=== PATIENT | female | born 1955 | race Caucasian/White ===

== ENCOUNTER 2018-03-30 19:07 | Inpatient (IN) | payer MEDICAID ==
--- NOTE | 2018-03-30 19:57 | ED Physician Chart ---
ED Chief Complaint/HPI - Patient Information Date Seen:: 03/30/18 Time Seen:: 19:57 Chief Complaint:: elevated bp History of Present Illness:: 62 yr old [place] from [place] with headache elevated bp up to 180 she states they ran out of meds and has not been getting it some headache and dizziness no numbness or tingling Allergies:: Allergies Allergy/AdvReac Type Severity Reaction Status Date / Time No Known Allergies Allergy Verified 03/30/18 19:14 Vitals:: Vital Signs - 8 hr 03/30/18 19:07 Temp 98.1 F HR 78 RR 20 BP 180/85 O2 Sat % 95 ED Review of Systems - Review of Systems General/Constitutional: No fever, No chills, No weight loss, No weakness, No diaphoresis, No edema, No loss of appetite Skin: No skin lesions, No rash, No bruising Head: Headache Eyes: No loss of vision, No pain, No diplopia ENT: No earache, No nasal drainage, No sore throat, No tinnitus Neck: No neck pain, No swelling, No thyromegaly, No stiffness, No mass noted Cardio Vascular: No chest pain, No palpitations, No PND, No orthopnea, No edema Pulmonary: No SOB, No cough, No sputum, No wheezing GI: No nausea, No vomiting, No diarrhea, No pain, No melena, No hematochezia, No constipation, No hematemesis G/U: No dysuria, No frequency, No hematuria Musculoskeletal: No bone or joint pain, No back pain, No muscle pain Endocrine: No polyuria, No polydipsia Psychiatric: No prior psych history, No depression, No anxiety, No suicidal ideation Hematopoietic: No bruising, No lymphadenopathy Allergic/Immuno: No urticaria, No angioedema Neurological: No syncope, No focal symptoms, No weakness, No paresthesia, No headache, No seizure, No dizziness, No confusion, No vertigo ED Past Medical History - Past Medical History Past Medical History: HTN, DM, CAD, Dyslipidemia Family Medical History - Family Member Mother History Unknown: Yes Ethnicity: Non- ED Physical Exam - Physical Examination General/Constitutional: Awake, Well-developed, well-nourished, Alert, No distress, GCS 15, Non-toxic appearing, Ambulatory Head: Atraumatic Eyes: Lids, conjuctiva normal, PERRL, EOMI Skin: Nl inspection, No rash, No skin lesions, No ecchymosis, Well hydrated, No lymphadenopathy Other Skin comments:: toe amputaion lt and skin ulcer on iv abs via pick line on rt at the senior care ENMT: External ears, nose nl, Nasal exam nl, Lips, teeth, gums nl Neck: Nontender, Full ROM w/o pain, No JVD, No nuchal rigidity, No bruit, No mass, No stridor Respiratory: Nl effort/Exclusion, Clear to Auscultation, No Wheeze/Rhonchi/Rales Cardio Vascular: RRR, No murmur, gallop, rubs, NL S1 S2 GI: No tenderness/rebounding/guarding, No organomegaly, No hernia, Normal BS's, Nondistended, No mass/bruits, No McBurney tenderness : No CVA tenderness Extremities: No tenderness or effusion, Full ROM, normal strength in all extremities, No edema, Normal digits & nails Neuro/Psych: Alert/oriented, DTR's symmetric, Normal sensory exam, Normal motor strength, Judgement/insight normal, Mood normal, Normal gait, No focal deficits Misc: Normal back, No paraspinal tenderness ED Assessment - Assessment General Assessment: hypertension out of control ED Septic Shock - . Is Septic Shock (SBP<90, OR Lactate>4 mmol\L) present?: No - <6hrs of presentation: Vital Signs: Vital Signs - 8 hr 03/30/18 19:07 Temp 98.1 F HR 78 RR 20 BP 180/85 O2 Sat % 95 ED Reassessment (Disposition) - Reassessment Reassessment:: hypertension out of control - Diagnosis Diagnosis:: hypertension improved s/p lisinopril 5.0 mg - Patient Disposition Discharge/Transfer:: [facility] Condition at Disposition:: Stable
[2018-03-30 20:39] LABS: URINE SOURCE CLEAN C
[2018-03-30 20:42] LABS: URINE BILIRUBIN NEGATIVE (NEGATIVE); URINE BLOOD TRACE (NEGATIVE); URINE GLUCOSE (UA) NEGATIVE (NEGATIVE); URINE KETONE NEGATIVE (NEGATIVE); URINE LEUKOCYTE ESTERASE NEGATIVE (NEGATIVE); URINE MICROSCOPIC INDICATED? YES; URINE NITRATE NEGATIVE (NEGATIVE); URINE PH 6.5 (4.6 - 8.0); URINE PROTEIN >=300 mg/dL (NEGATIVE); URINE UROBILINOGEN 0.2 E.U./dL (0.2 - 1.0)
[2018-03-30 20:59] LABS: URINE CLARITY CLEAR (CLEAR); URINE COLOR YELLOW
[2018-03-30 21:01] LABS: URINE BACTERIA OCCASIONAL /hpf (NONE SEEN); URINE EPITHELIAL CELLS FEW /lpf (FEW); URINE WBC 0-2 /hpf (0-5)
[2018-03-30 21:02] LABS: URINE YEAST FEW /hpf (NONE SEEN)
[2018-03-30 21:52] LABS: % BASOPHILS 0.7 % (0.0-2.0); % EOSINOPHILS 3.6 % (0.0-5.0); % LYMPHOCYTES 27.1 % (20.0-50.0); % MONOCYTES 6.4 % (2.0-10.0); % NEUTROPHILS 62.2 % (40.0-80.0); BASOPHILE ABSOLUTE 0.1 Th/cumm (0-0.2); EOSINOPHILE ABSOLUTE 0.3 Th/cmm (0.1-0.4); HEMOGLOBIN 13.5 gm/dL (12-16); LYMPHOCYTE ABSOLUTE 2.4 Th/cmm (1.5-3.0); MEAN CELL VOLUME 92.9 fl (81-100); MEAN CORPUSCULAR HEMOGLOBIN 30.7 pg (27.0-31.0); MEAN PLATELET VOLUME 8.9 fl; MONOCYTE ABSOLUTE 0.6 Th/cmm (0.3-1.0); NEUTROPHILE ABSOLUTE 5.3 Th/cmm (1.8-8.0); PLATELET COUNT 307 Th/cmm (150-400); RED BLOOD COUNT 4.41 Mil/cmm (3.80-5.10); RED CELL DISTRIBUTION WIDTH 14.6 % (11.5-20.0); WHITE BLOOD COUNT 8.7 Th/cmm (4.8-10.8)
[2018-03-30 22:35] LABS: ALB/GLOB RATIO 1.1 (1.0-1.8); ALBUMIN 3.2 gm/dL (3.7-5.3); ALKALINE PHOSPHATASE 81 U/L (34-104); ANION GAP 9.3 (7.0-16.0); BILIRUBIN,TOTAL 0.3 mg/dL (0.3-1.0); BUN - UREA NITROGEN 31 mg/dL (7-25); CALCIUM SERUM 9.5 mg/dL (8.6-10.3); CHLORIDE 101 mEq/L (98-107); GFR AFRICAN-AMERICAN > 60.0 ml/min (>90); GFR NON AFRICAN-AMERICAN 59.7 ml/min; GLUCOSE 142 mg/dL (70-105); POTASSIUM SERUM 4.3 mEq/L (3.5-5.1); SGOT 8 U/L (13-39); SGPT/ALT 6 U/L (7-52); SODIUM SERUM 139 mEq/L (136-145); TOTAL PROTEIN,SERUM 6.1 gm/dL (6.0-8.3)
[2018-03-30] MEDS ORDERED: Labetalol 5 mg/mL 20 mL Vial IVP PRN (23:04)
[2018-03-31] MEDS ORDERED: Hydrocodone/APAP 5mg/325mg Tab PO PRN (03:49)
[2018-03-31] MEDS ORDERED: Magnesium Hydroxide (MOM) 30 mL UDC PO PRN (03:49)
[2018-03-31] MEDS ORDERED: ERTAPENEM 1 GM IV SCH (04:00)
--- NOTE | 2018-03-31 04:22 | History & Physical ---
ADMIT DATE: 03/31/2018 CHIEF COMPLAINT: Uncontrolled hypertension. HISTORY OF PRESENT ILLNESS: The patient is 62-year-old female with a past medical history of hypertension, diabetes mellitus type 2, coronary artery disease, dyslipidemia, had developed uncontrolled hypertension. The systolic blood pressure was 180s. The patient also has SSA headache. So, she was sent to [facility] ER for further evaluation and management. On initial evaluation, her vital signs shows blood pressure 180/85, some oral antihypertensive apply given; however, her blood pressure went back again to 178. So she required admission to control her blood pressure. I did start the patient on labetalol. Besides this, patient also receiving antibiotics for her right foot ulcer, possibly deep infection. PAST MEDICAL HISTORY: Includes hypertension, diabetes mellitus type 2, coronary artery disease and dyslipidemia. ALLERGIES: NKDA. MEDICATIONS: As per medication reconciliation sheet. The patient is receiving Tylenol 325 mg p.o. q. 6 hourly p.r.n., Alginate Powder daily, glucose gel 50 mg p.o. daily, Colace 100 mg p.o. twice a day, Lovenox 40 mg subcutaneous daily, Invanz 1 gram IV q. 24 hours, gabapentin 1200 mg p.o. twice a day, glipizide 10 mg p.o. twice a day, Exmore 1 tab p.o. q.6. hourly p.r.n., insulin coverage with sliding scale, lisinopril 10 mg p.o. daily, lorazepam 0.5 mg q.8. hourly p.r.n. for anxiety, milk of magnesia, metformin 500 mg twice a day, multivitamin 1 tab p.o. daily, Zofran 4 mg p.o. q.6. hourly p.r.n. for nausea and vomiting, Klor-Con 10 mEq 1 tab p.o. daily and Restoril 50 mg p.o. at bedtime. REVIEW OF SYSTEMS: The patient is a poor historian. PHYSICAL EXAMINATION: GENERAL/CONSTITUTIONAL: No fever, no chills, no weight loss, no diaphoresis, no generalized weakness. HEENT: No diplopia, no photophobia, no sore throat, no ear discharge, no eye discharge. RESPIRATORY: The patient has no cough, no shortness of breath. CARDIOVASCULAR: No chest pain or palpitation. GASTROINTESTINAL: No nausea, no vomiting, no diarrhea, no constipation. GENITOURINARY: No dysuria. NEUROLOGIC: No headache, no dizziness, no focal weakness at this time. SKIN: The patient has a right foot ulcer. PHYSICAL EXAMINATION: VITAL SIGNS: Current vital signs shows temperature is 97.8, pulse 70, respiration 19 and blood pressure 178/83. GENERAL: The patient is comfortable lying in the bed, not in acute distress. HEENT: Head is normocephalic, atraumatic. Oral cavity moist, pink tongue. Eyes: No pallor, no icterus. PERRLA, EOMI. NECK: Supple, no JVD, no carotid bruit. Trachea midline. CHEST: Bilateral breath sounds. No crackles or wheezing. HEART: S1, S2 within normal limits. Regular rhythm. No murmur, no gallop. ABDOMEN: Soft, nontender, nondistended. Bowel sounds present. EXTREMITIES: No cyanosis, no clubbing, no edema. Right foot, the patient has fifth toe amputated. Surgical scar is healthy, but at the bottom of the right forefoot anterolaterally. There is a P size open wound with a deepest structure expose likely tendon versus wound well defined border. Serous discharge present. NEUROLOGIC: Alert, awake, communicates well. LABORATORY DATA: Current lab shows WBC count is 8700, hemoglobin 13.5, hematocrit 41, platelets are 307,000 and neutrophil is 62%. Sodium is 139, potassium 4.3, chloride 101, bicarb is 33, BUN is 21, creatinine 1 and glucose is 142. IMPRESSION: 1. Urgent hypertension, not controlled with an oral antihypertensive in the ER, even after giving labetalol 10 mg it is barely controlled. 2. Right foot wound, rule out osteomyelitis. 3. History of hypertension. 4. Diabetes mellitus type 2 5. Coronary artery disease. 6. Dyslipidemia. RECOMMENDATIONS: Wound care check a 3-phase bone scan. Antibiotic chowdhury, continue Invanz or meropenem at this time. Meanwhile, we will get further information from the previous facilities. Continue home medications for urgent hypertension, labetalol was started 10 mg p.o. q.6. hourly p.r.n. Cardiology consult with Dr. Underwood was called and he started the patient on Coreg and Cozaar. Continue on Vasotec. Once the patient's blood pressure controlled, start discharge plan. Consult General Surgery, Vascular Surgery Dr. Elias. JOB# [id number]
[2018-03-31] MEDS: Meropenem 1 GM in Sodium Chloride 0.9% 100 ML IV SCH ×3 (04:24→20:18)
[2018-03-31 04:38] LABS: % EOSINOPHILS 2.7 % (0.0-5.0); % MONOCYTES 5.7 % (2.0-10.0); % NEUTROPHILS 68.6 % (40.0-80.0); EOSINOPHILE ABSOLUTE 0.2 Th/cmm (0.1-0.4); HEMATOCRIT 40.5 % (41.0-60); HEMOGLOBIN 13.1 gm/dL (12-16); MEAN CELL VOLUME 92.8 fl (81-100); MEAN CORPUSCULAR HEMOGLOBIN 30.1 pg (27.0-31.0); MEAN CORPUSCULAR HGB CONC 32.4 pg (28.0-36.0); MEAN PLATELET VOLUME 9.3 fl; MONOCYTE ABSOLUTE 0.5 Th/cmm (0.3-1.0); PLATELET COUNT 290 Th/cmm (150-400); RED BLOOD COUNT 4.36 Mil/cmm (3.80-5.10); RED CELL DISTRIBUTION WIDTH 14.3 % (11.5-20.0); WHITE BLOOD COUNT 8.7 Th/cmm (4.8-10.8)
--- NOTE | 2018-03-31 05:55 | Consultation ---
DATE OF CONSULTATION: 03/31/2018 TIME OF CONSULTATION: 3:00 a.m. Emergency consult. HISTORY OF PRESENT ILLNESS: This 62-year-old female was seen and examined at the courtesy of Dr. Nathen Cain. The patient was admitted here to the Emergency Room. She was transferred here from a custodial [facility] with hypertensive emergency and uncontrolled hypertension. She does have a history of hypertension, history of diabetes, on insulin. She has history of amputation of the right fifth toe for osteomyelitis. She has history of skin cancer, status post gallbladder surgery. Her EKG showed sinus rhythm, possible anteroseptal HI, the possibility of old HI by EKG, question for history of coronary artery disease. LABORATORY AND DIAGNOSTIC DATA: On reviewing the lab: WBC count was 8.7, hemoglobin 13.5, hematocrit 41, platelet count was 307. Sodium was 139, potassium 4.3, chloride 101, carbon dioxide 33, BUN 31, creatinine 1.0, GFR was 59.7, glucose was 142, lactic acid was 1.02, calcium was 9.5, total bilirubin 0.3, AST 8, ALT 6, alkaline phosphatase 81. Troponin was 0.04. Total protein 6.1, albumin 3.2, bilirubin 2.9. PAST MEDICAL HISTORY: As mentioned above. FAMILY HISTORY: The patient does not give any significant family history but the patient is not a very good historian. SOCIAL HISTORY: Denies smoking or drinking. PHYSICAL EXAMINATION: VITAL SIGNS: Heart rate was 70, blood pressure was 173/94, in the ER it was about 200/96. SKIN: Normal. HEENT: Head: Normocephalic. Eyes: Conjunctivae were pink. There is no icterus in the eyes. Pupils reactive to light. NECK: There was no increased jugular venous distention, no thyromegaly, no lymphadenopathy. Carotids equal both sides. CHEST: Bilaterally symmetrical, moved well with respiration. Respiratory movements equal both sides. Trachea is central. There is note to percussion. Breath sound: Diminished breath sounds, air entry. Could not appreciate any rales or rhonchi. CARDIOVASCULAR SYSTEM: PMI not well localized. There is no pulsation or thrill. No parasternal heave. S1 normal, S2 physiologic. There was no S3, no rub. ABDOMEN: Soft, no tenderness, no rigidity, no guarding and no organomegaly. Bowel sounds normal. CENTRAL NERVOUS SYSTEM: Grossly unremarkable. Hyporeflexia. Plantars are flexors. IMPRESSION: Uncontrolled hypertension with hypertensive emergency, diabetes type 2 on insulin, status post amputation of the right fifth toe for osteomyelitis, history of skin cancer, status post gallbladder surgery, old myocardial infarction by EKG, possible coronary artery disease. PLAN: To get a repeat EKG in a.m., repeat troponin, echocardiogram to evaluate left ventricular function and valvular structure, lipid profile in a.m., TSH in a.m., hemoglobin A1c, a chest x-ray. In the meantime, we will add Coreg 6.25 b.i.d., Cozaar 50 mg b.i.d., Vasotec 1.25 mg IV q.6 p.r.n. for blood pressure more than 160 systolic. Discussed with RN and Dr. Nathen Cain. JOB# [id number]
[2018-03-31] MEDS ORDERED: INSULIN HUMAN REGULAR 100 UNITS/ML UNIT SUBQ SCH (06:00)
[2018-03-31 06:49] LABS: ANION GAP 12.6 (7.0-16.0); BUN - UREA NITROGEN 29 mg/dL (7-25); CALCIUM SERUM 9.5 mg/dL (8.6-10.3); CARBON DIOXIDE 28.8 mEq/L (21.0-31.0); CHLORIDE 103 mEq/L (98-107); CHOLESTEROL 162 mg/dL (<200); CREATININE - SERUM 0.9 mg/dL (0.6-1.2); GFR AFRICAN-AMERICAN > 60.0 ml/min (>90); GFR NON AFRICAN-AMERICAN > 60.0 ml/min; GLUCOSE 158 mg/dL (70-105); HDL -HIGH DENSITY LIPOPROTEIN 40 mg/dL (23-92); POTASSIUM SERUM 4.4 mEq/L (3.5-5.1); SODIUM SERUM 140 mEq/L (136-145); TRIGLYCERIDES 198 mg/dL (<150)
--- NOTE | 2018-03-31 08:34 | Diagnostic Imaging Report ---
Portable chest x-ray HISTORY: Pain The heart is enlarged. There is accentuation of interstitial lung markings. Suggestion of a degree of pulmonary vascular redistribution. A marginal congestive heart failure cannot be excluded. A right-sided vascular catheter tip is in the region of the superior vena cava. IMPRESSION: 1. Cardiomegaly along with changes that may reflect early/marginal congestive heart failure without jayden pulmonary edema. Clinical correlation is needed.
[2018-03-31] MEDS: Multivitamin w/ Minerals Tab PO SCH (08:55)
[2018-03-31] MEDS: Enoxaparin 40 mg/0.4 mL 0.4mL Syr SUBQ SCH (08:55)
[2018-03-31] MEDS ORDERED: Non-Formulary Item 1 EA (Potassium Chloride [Klor-Con 10] 1 TAB) PO SCH (09:00)
[2018-03-31] MEDS ORDERED: Non-Formulary Item 1 EA (Arginine/Ascorbate Sod/Vite Ac [Arginaid Powder] 1 EACH) PO SCH (09:00)
--- NOTE | 2018-03-31 11:33 | Consultation ---
DATE OF CONSULTATION: 03/31/2018 SURGICAL CONSULTATION REFERRING PHYSICIAN: Nathen Cain MD. REASON FOR CONSULTATION: Infection, right foot. Thank you for referring this patient to me. HISTORY OF PRESENT ILLNESS: A 62-year-old obese diabetic female who claims that she had infection of the right foot at the base of the amputated fifth toe. The toe was amputated a year ago and about a month ago, there developed an ulcer, plantar aspect just below the stump. A bone scan was done at [facility] 3 weeks ago and this showed osteomyelitis. She is diabetic, hypertensive with coronary artery disease, dyslipidemia and smokes at least 1/2 a pack of cigarettes a day. She claims that when she ambulates with a walker, she develops claudication in both legs after just several steps. LABORATORY STUDIES: On this admission showed the WBC to be normal. Chemistry: Blood sugar was 142 on admission and 158 today. Triglyceride is elevated to 198, rest of the lipid panel is normal. Chest x-ray showed cardiomegaly with marginal CHF. PHYSICAL EXAMINATION: Now the patient is alert and oriented. She is obese. Significant finding stump of the right fifth toe amputation with an ulcer at the base with minimal cellulitis and no drainage. It is not tender on pressure. RECOMMENDATION: We will order vascular study to determine peripheral vascular disease and will obtain the report of the MRI or bone scan at [facility] performed 3 weeks ago. The patient is on antibiotics now. Thank you Dr. Elias. JOB# [id number]
[2018-03-31] MEDS: INSULIN ASPART SLIDING SCALE 100 UNITS/ML UNIT SUBQ SCH ×2 (12:06→17:26)
--- NOTE | 2018-03-31 12:52 | Diagnostic Imaging Report ---
Bilateral lower extremity Doppler venous ultrasound exam HISTORY: Pain/swelling Sonographic sector images were obtained through the deep venous systems of both legs. Associated Doppler data was obtained. The exam demonstrates patency of the common femoral, superficial femoral, popliteal, and posterior tibial veins bilaterally. Specifically, no thrombus is seen. There are normal compressibility and augmentation responses. IMPRESSION: Negative exam for deep vein thrombophlebitis.
--- NOTE | 2018-03-31 12:55 | Diagnostic Imaging Report ---
Bilateral lower extremity Doppler arterial ultrasound exam HISTORY: Peripheral vascular disease, pain Sonographic sector images were obtained through the arterial systems of both legs. Associated Doppler data was obtained. The exam of the right leg demonstrates triphasic waveforms within the common femoral artery. Biphasic waveforms are noted within the superficial femoral, popliteal, anterior tibial, and dorsalis pedis arteries. Triphasic waveforms seen within the right posterior tibial artery. Slight decrease in velocities below the knee. The ankle-brachial index is normal (1.1). No significant focal narrowing/stenosis sonographically seen. The left leg demonstrates triphasic waveforms within the common femoral artery and midportion of the left superficial femoral artery. The remainder of the arterial system exhibits biphasic waveforms. Slight decrease in velocity noted within the left dorsalis pedis artery region. However, the ankle-brachial index is normal (1.1). No significant focal narrowing/stenosis is seen. IMPRESSION: 1. Evidence of mild bilateral atherosclerotic changes. No significant narrowing or stenosis.
[2018-04-01] MEDS: INSULIN ASPART SLIDING SCALE 100 UNITS/ML UNIT SUBQ SCH ×4 (00:16→17:38)
--- NOTE | 2018-04-01 01:03 | Infectious Disease Prog Note ---
Infectious Disease Subjective - Review of Systems Service Date: 04/01/18 Subjective: There is no new change,blood pressure is better controlled. Infectious Disease Objective - Results Result Diagrams: 03/31/18 04:15 03/31/18 04:15 Recent Labs: Laboratory Last Values WBC 8.7 Th/cmm (4.8-10.8) 03/31/18 04:15 RBC 4.36 Mil/cmm (3.80-5.10) 03/31/18 04:15 Hgb 13.1 gm/dL (12-16) 03/31/18 04:15 Hct 40.5 % (41.0-60) L 03/31/18 04:15 MCV 92.8 fl (81-100) 03/31/18 04:15 MCH 30.1 pg (27.0-31.0) 03/31/18 04:15 MCHC Differential 32.4 pg (28.0-36.0) 03/31/18 04:15 RDW 14.3 % (11.5-20.0) 03/31/18 04:15 Plt Count 290 Th/cmm (150-400) 03/31/18 04:15 MPV 9.3 fl 03/31/18 04:15 Neutrophils % 68.6 % (40.0-80.0) 03/31/18 04:15 Lymphocytes % 23.0 % (20.0-50.0) 03/31/18 04:15 Monocytes % 5.7 % (2.0-10.0) 03/31/18 04:15 Eosinophils % 2.7 % (0.0-5.0) 03/31/18 04:15 Basophils % 0.0 % (0.0-2.0) 03/31/18 04:15 Sodium 140 mEq/L (136-145) 03/31/18 04:15 Potassium 4.4 mEq/L (3.5-5.1) 03/31/18 04:15 Chloride 103 mEq/L (98-107) 03/31/18 04:15 Carbon Dioxide 28.8 mEq/L (21.0-31.0) 03/31/18 04:15 Anion Gap 12.6 (7.0-16.0) 03/31/18 04:15 BUN 29 mg/dL (7-25) H 03/31/18 04:15 Creatinine 0.9 mg/dL (0.6-1.2) 03/31/18 04:15 Est GFR ( Amer) > 60.0 ml/min (>90) 03/31/18 04:15 Est GFR (Non-Af Amer) > 60.0 ml/min 03/31/18 04:15 BUN/Creatinine Ratio 32.2 03/31/18 04:15 Glucose 158 mg/dL (70-105) H 03/31/18 04:15 POC Glucose 117 MG/DL (70 - 105) H 03/31/18 23:47 Whole Bld Lactic Acid 1.02 mmol/L (0.60-1.99) 03/30/18 21:40 Calcium 9.5 mg/dL (8.6-10.3) 03/31/18 04:15 Total Bilirubin 0.3 mg/dL (0.3-1.0) 03/30/18 21:40 AST 8 U/L (13-39) L 03/30/18 21:40 ALT 6 U/L (7-52) L 03/30/18 21:40 Alkaline Phosphatase 81 U/L (34-104) 03/30/18 21:40 Troponin I 0.03 ng/mL (0.01-0.05) 03/31/18 04:15 Total Protein 6.1 gm/dL (6.0-8.3) 03/30/18 21:40 Albumin 3.2 gm/dL (3.7-5.3) L 03/30/18 21:40 Globulin 2.9 gm/dL 03/30/18 21:40 Albumin/Globulin Ratio 1.1 (1.0-1.8) 03/30/18 21:40 Triglycerides 198 mg/dL (<150) H 03/31/18 04:15 Cholesterol 162 mg/dL (<200) 03/31/18 04:15 LDL Cholesterol Direct 85 mg/dL (75-193) 03/31/18 04:15 HDL Cholesterol 40 mg/dL (23-92) 03/31/18 04:15 TSH 1.10 uIU/ml (0.34-5.60) 03/31/18 04:15 Urine Source CLEAN C 03/30/18 20:24 Urine Color YELLOW 03/30/18 20:24 Urine Clarity CLEAR (CLEAR) 03/30/18 20:24 Urine pH 6.5 (4.6 - 8.0) 03/30/18 20:24 Ur Specific [place] 1.020 (1.005-1.030) 03/30/18 20:24 Urine Protein >=300 mg/dL (NEGATIVE) 03/30/18 20:24 Urine Glucose (UA) NEGATIVE mg/dL (NEGATIVE) 03/30/18 20:24 Urine Ketones NEGATIVE mg/dL (NEGATIVE) 03/30/18 20:24 Urine Blood TRACE (NEGATIVE) 03/30/18 20:24 Urine Nitrate NEGATIVE (NEGATIVE) 03/30/18 20:24 Urine Bilirubin NEGATIVE (NEGATIVE) 03/30/18 20:24 Urine Urobilinogen 0.2 E.U./dL (0.2 - 1.0) 03/30/18 20:24 Ur Leukocyte Esterase NEGATIVE (NEGATIVE) 03/30/18 20:24 Urine RBC 2-5 /hpf (0-5) 03/30/18 20:24 Urine WBC 0-2 /hpf (0-5) 03/30/18 20:24 Ur Epithelial Cells FEW /lpf (FEW) 03/30/18 20:24 Urine Bacteria OCCASIONAL /hpf (NONE SEEN) 03/30/18 20:24 Urine Yeast FEW /hpf (NONE SEEN) H 03/30/18 20:24 - Physical Exam Vitals and I&O: Vital Signs Temp 97 F 04/01/18 00:00 Pulse 66 04/01/18 00:00 Resp 18 04/01/18 00:00 BP 155/85 04/01/18 00:00 Pulse Ox 97 04/01/18 00:00 Intake & Output 03/31/18 03/31/18 04/01/18 06:59 18:59 06:59 Intake Total 150 100 100 Output Total 550 Balance -400 100 100 Weight (lbs) 94.347 kg 94.517 kg Intake: Intake, IV Amount 100 100 100 Meropenem 1 gm In Sodium 100 100 100 Chloride 0.9% 100 ml @ 100 mls/hr IV Q8H [facility] Rx# :[id number] Oral 50 Output: Urine 550 Other: # Voids 3 4 # Bowel Movements 0 Stool Characteristics Formed Brown Weight Source Bedscale Bedscale Active Medications: Current Medications Acetaminophen (Tylenol) 325 mg PO Q6HR PRN PRN Reason: Pain or Fever >101 Stop: 05/30/18 03:48 Acetaminophen/Hydrocodone Bitart ([place] 5mg/325mg) 1 tab PO Q6H PRN PRN Reason: Pain (Severe) Stop: 05/30/18 03:48 Carvedilol (Coreg) 6.25 mg PO BID [facility] Stop: 05/30/18 08:59 Last Admin: 03/31/18 16:36 Dose: 6.25 mg Dextrose (Glutose 40%) 15 gm PO DAILY PRN PRN Reason: LOW BLOOD SUGAR Stop: 05/30/18 03:48 Docusate Sodium (Colace) 100 mg PO BID [facility] Stop: 05/30/18 08:59 Last Admin: 03/31/18 16:36 Dose: 100 mg Enalaprilat (Vasotec) 1.25 mg IVP Q6HR PRN PRN Reason: SBP ABOVE 160 Stop: 05/30/18 05:59 Last Admin: 03/31/18 04:24 Dose: 1.25 mg Enoxaparin Sodium (Lovenox) 40 mg SUBQ DAILY [facility] Stop: 05/30/18 08:59 Last Admin: 03/31/18 08:55 Dose: 40 mg Gabapentin (Neurontin) 1,200 mg PO BID [facility] Stop: 05/30/18 08:59 Last Admin: 03/31/18 16:37 Dose: 1,200 mg Glipizide (Glucotrol) 10 mg PO BID [facility] Stop: 05/30/18 08:59 Last Admin: 03/31/18 16:37 Dose: 10 mg Meropenem 1 gm/ Sodium (Chloride) 100 mls @ 100 mls/hr IV Q8H [facility] Stop: 05/30/18 03:59 Last Infusion: 03/31/18 21:20 Dose: Infused Insulin Aspart (Novolog Insulin Sliding Scale) 0 units SUBQ Q6HR [facility]; Protocol Stop: 05/30/18 05:59 Last Admin: 04/01/18 00:16 Dose: Not Given Lorazepam (Ativan) 0.5 mg PO Q8HR PRN; Protocol PRN Reason: Anxiety Stop: 05/30/18 03:48 Losartan Potassium (Cozaar) 50 mg PO BID [facility] Stop: 05/30/18 16:59 Last Admin: 03/31/18 16:36 Dose: 50 mg Magnesium Hydroxide (Milk Of Magnesia) 30 ml PO HS PRN PRN Reason: Constipation Stop: 05/30/18 03:48 Metformin HCl (Glucophage) 500 mg PO BIDWM WILL Stop: 05/30/18 08:59 Last Admin: 03/31/18 17:31 Dose: Not Given Miscellaneous (Pharmacy To Dose) 1 ea MC PRN WILL Stop: 05/29/18 22:24 Miscellaneous (Arginine/Ascorbate Sod/Ruby Ac [Arginaid Powder]) 1 each PO DAILY WILL Stop: 05/30/18 08:59 Miscellaneous (Potassium Chloride [Klor-Con 10]) 1 tab PO DAILY WILL Stop: 05/30/18 08:59 Ondansetron HCl (Zofran Odt) 4 mg PO Q6HR PRN PRN Reason: Nausea / Vomiting Stop: 05/30/18 03:51 Temazepam (Restoril) 15 mg PO HS PRN; Protocol PRN Reason: Insomnia Stop: 05/30/18 03:51 Last Admin: 03/31/18 23:57 Dose: 15 mg General: no acute distress, well developed, well nourished HEENT: atraumatic, normocephalic, PERRLA, EOMI Neck: supple, no thyromegaly Cardiovascular: S1S2, regular Lungs: clear to auscultation bilaterally, clear to percussion Abdomen: soft, no tender, no distended, no mass, no rebound Extremities: no cyanosis, no clubbing, no edema Neurological: awake, alert, oriented Skin: other (Right foot wound.) Infectious Disease Assmt/Plan - Assessment Assessment: 1. Urgent hypertension, not controlled with an oral antihypertensive in the ER, even after giving labetalol 10 mg it is barely controlled. 2. Right foot wound, rule out osteomyelitis. 3. History of hypertension. 4. Diabetes mellitus type 2 5. Coronary artery disease. 6. Dyslipidemia. - Plan Plan: Continue meropenem, follow wound cultures. 3P bone scan.
[2018-04-01] MEDS: Meropenem 1 GM in Sodium Chloride 0.9% 100 ML IV SCH ×3 (03:39→20:24)
[2018-04-01] MEDS: Nicotine 14 mg/24 hr Tdm TD SCH (08:17)
[2018-04-01] MEDS: Multivitamin w/ Minerals Tab PO SCH (08:19)
[2018-04-01] MEDS: Enoxaparin 40 mg/0.4 mL 0.4mL Syr SUBQ SCH (08:20)
--- NOTE | 2018-04-01 12:21 | General Progress Note ---
Subjective - Review of Systems Service Date: 04/01/18 Events since last encounter: bone scan done, awaiting results arterial and venous studies negative possible osteo right foot Objective - Results Result Diagrams: 03/31/18 04:15 03/31/18 04:15 Recent Labs: Laboratory Last Values WBC 8.7 Th/cmm (4.8-10.8) 03/31/18 04:15 RBC 4.36 Mil/cmm (3.80-5.10) 03/31/18 04:15 Hgb 13.1 gm/dL (12-16) 03/31/18 04:15 Hct 40.5 % (41.0-60) L 03/31/18 04:15 MCV 92.8 fl (81-100) 03/31/18 04:15 MCH 30.1 pg (27.0-31.0) 03/31/18 04:15 MCHC Differential 32.4 pg (28.0-36.0) 03/31/18 04:15 RDW 14.3 % (11.5-20.0) 03/31/18 04:15 Plt Count 290 Th/cmm (150-400) 03/31/18 04:15 MPV 9.3 fl 03/31/18 04:15 Neutrophils % 68.6 % (40.0-80.0) 03/31/18 04:15 Lymphocytes % 23.0 % (20.0-50.0) 03/31/18 04:15 Monocytes % 5.7 % (2.0-10.0) 03/31/18 04:15 Eosinophils % 2.7 % (0.0-5.0) 03/31/18 04:15 Basophils % 0.0 % (0.0-2.0) 03/31/18 04:15 Sodium 140 mEq/L (136-145) 03/31/18 04:15 Potassium 4.4 mEq/L (3.5-5.1) 03/31/18 04:15 Chloride 103 mEq/L (98-107) 03/31/18 04:15 Carbon Dioxide 28.8 mEq/L (21.0-31.0) 03/31/18 04:15 Anion Gap 12.6 (7.0-16.0) 03/31/18 04:15 BUN 29 mg/dL (7-25) H 03/31/18 04:15 Creatinine 0.9 mg/dL (0.6-1.2) 03/31/18 04:15 Est GFR ( Amer) > 60.0 ml/min (>90) 03/31/18 04:15 Est GFR (Non-Af Amer) > 60.0 ml/min 03/31/18 04:15 BUN/Creatinine Ratio 32.2 03/31/18 04:15 Glucose 158 mg/dL (70-105) H 03/31/18 04:15 POC Glucose 118 MG/DL (70 - 105) H 04/01/18 11:13 Whole Bld Lactic Acid 1.02 mmol/L (0.60-1.99) 03/30/18 21:40 Calcium 9.5 mg/dL (8.6-10.3) 03/31/18 04:15 Total Bilirubin 0.3 mg/dL (0.3-1.0) 03/30/18 21:40 AST 8 U/L (13-39) L 03/30/18 21:40 ALT 6 U/L (7-52) L 03/30/18 21:40 Alkaline Phosphatase 81 U/L (34-104) 03/30/18 21:40 Troponin I 0.03 ng/mL (0.01-0.05) 03/31/18 04:15 Total Protein 6.1 gm/dL (6.0-8.3) 03/30/18 21:40 Albumin 3.2 gm/dL (3.7-5.3) L 03/30/18 21:40 Globulin 2.9 gm/dL 03/30/18 21:40 Albumin/Globulin Ratio 1.1 (1.0-1.8) 03/30/18 21:40 Triglycerides 198 mg/dL (<150) H 03/31/18 04:15 Cholesterol 162 mg/dL (<200) 03/31/18 04:15 LDL Cholesterol Direct 85 mg/dL (75-193) 03/31/18 04:15 HDL Cholesterol 40 mg/dL (23-92) 03/31/18 04:15 TSH 1.10 uIU/ml (0.34-5.60) 03/31/18 04:15 Urine Source CLEAN C 03/30/18 20:24 Urine Color YELLOW 03/30/18 20:24 Urine Clarity CLEAR (CLEAR) 03/30/18 20:24 Urine pH 6.5 (4.6 - 8.0) 03/30/18 20:24 Ur Specific [place] 1.020 (1.005-1.030) 03/30/18 20:24 Urine Protein >=300 mg/dL (NEGATIVE) 03/30/18 20:24 Urine Glucose (UA) NEGATIVE mg/dL (NEGATIVE) 03/30/18 20:24 Urine Ketones NEGATIVE mg/dL (NEGATIVE) 03/30/18 20:24 Urine Blood TRACE (NEGATIVE) 03/30/18 20:24 Urine Nitrate NEGATIVE (NEGATIVE) 03/30/18 20:24 Urine Bilirubin NEGATIVE (NEGATIVE) 03/30/18 20:24 Urine Urobilinogen 0.2 E.U./dL (0.2 - 1.0) 03/30/18 20:24 Ur Leukocyte Esterase NEGATIVE (NEGATIVE) 03/30/18 20:24 Urine RBC 2-5 /hpf (0-5) 03/30/18 20:24 Urine WBC 0-2 /hpf (0-5) 03/30/18 20:24 Ur Epithelial Cells FEW /lpf (FEW) 03/30/18 20:24 Urine Bacteria OCCASIONAL /hpf (NONE SEEN) 03/30/18 20:24 Urine Yeast FEW /hpf (NONE SEEN) H 03/30/18 20:24 - Physical Exam Vitals and I&O: Vital Signs Temp 97.1 F 04/01/18 11:53 Pulse 102 04/01/18 11:53 Resp 18 04/01/18 11:53 BP 147/74 04/01/18 11:53 Pulse Ox 98 04/01/18 11:53 Intake & Output 03/31/18 04/01/18 04/01/18 18:59 06:59 18:59 Intake Total 100 200 Output Total 1 Balance 100 199 Weight (lbs) 94.517 kg 95.799 kg Intake: Intake, IV Amount 100 200 Meropenem 1 gm In Sodium 100 200 Chloride 0.9% 100 ml @ 100 mls/hr IV Q8H [facility] Rx# :[id number] Output: Stool 1 Other: # Voids 4 3 # Bowel Movements 0 Stool Characteristics Formed Soft Brown Weight Source Bedscale Bedscale Active Medications: Current Medications Acetaminophen (Tylenol) 325 mg PO Q6HR PRN PRN Reason: Pain or Fever >101 Stop: 05/30/18 03:48 Acetaminophen/Hydrocodone Bitart ([place] 5mg/325mg) 1 tab PO Q6H PRN PRN Reason: Pain (Severe) Stop: 05/30/18 03:48 Carvedilol (Coreg) 6.25 mg PO BID [facility] Stop: 05/30/18 08:59 Last Admin: 04/01/18 08:19 Dose: 6.25 mg Dextrose (Glutose 40%) 15 gm PO DAILY PRN PRN Reason: LOW BLOOD SUGAR Stop: 05/30/18 03:48 Docusate Sodium (Colace) 100 mg PO BID [facility] Stop: 05/30/18 08:59 Last Admin: 04/01/18 08:19 Dose: 100 mg Enalaprilat (Vasotec) 1.25 mg IVP Q6HR PRN PRN Reason: SBP ABOVE 160 Stop: 05/30/18 05:59 Last Admin: 03/31/18 04:24 Dose: 1.25 mg Enoxaparin Sodium (Lovenox) 40 mg SUBQ DAILY [facility] Stop: 05/30/18 08:59 Last Admin: 04/01/18 08:20 Dose: 40 mg Gabapentin (Neurontin) 1,200 mg PO BID [facility] Stop: 05/30/18 08:59 Last Admin: 04/01/18 08:18 Dose: 1,200 mg Glipizide (Glucotrol) 10 mg PO BID [facility] Stop: 05/30/18 08:59 Last Admin: 04/01/18 08:19 Dose: 10 mg Meropenem 1 gm/ Sodium (Chloride) 100 mls @ 100 mls/hr IV Q8H [facility] Stop: 05/30/18 03:59 Last Admin: 04/01/18 12:15 Dose: 100 mls/hr Insulin Aspart (Novolog Insulin Sliding Scale) 0 units SUBQ Q6HR [facility]; Protocol Stop: 05/30/18 05:59 Last Admin: 04/01/18 12:08 Dose: Not Given Lorazepam (Ativan) 0.5 mg PO Q8HR PRN; Protocol PRN Reason: Anxiety Stop: 05/30/18 03:48 Last Admin: 04/01/18 03:46 Dose: 0.5 mg Losartan Potassium (Cozaar) 50 mg PO BID [facility] Stop: 05/30/18 16:59 Last Admin: 04/01/18 08:19 Dose: 50 mg Magnesium Hydroxide (Milk Of Magnesia) 30 ml PO HS PRN PRN Reason: Constipation Stop: 05/30/18 03:48 Metformin HCl (Glucophage) 500 mg PO BIDWM WILL Stop: 05/30/18 08:59 Last Admin: 04/01/18 08:18 Dose: 500 mg Miscellaneous (Pharmacy To Dose) 1 ea MC PRN [facility] Stop: 05/29/18 22:24 Miscellaneous (Arginine/Ascorbate Sod/Ruby Ac [Arginaid Powder]) 1 each PO DAILY [facility] Stop: 05/30/18 08:59 Miscellaneous (Potassium Chloride [Klor-Con 10]) 1 tab PO DAILY [facility] Stop: 05/30/18 08:59 Nicotine (Nicotine Transdermal System) 14 mg TD DAILY [facility] Stop: 05/31/18 08:59 Last Admin: 04/01/18 08:17 Dose: 14 mg Ondansetron HCl (Zofran Odt) 4 mg PO Q6HR PRN PRN Reason: Nausea / Vomiting Stop: 05/30/18 03:51 Temazepam (Restoril) 15 mg PO HS PRN; Protocol PRN Reason: Insomnia Stop: 05/30/18 03:51 Last Admin: 03/31/18 23:57 Dose: 15 mg
--- NOTE | 2018-04-01 12:44 | Infectious Disease Prog Note ---
Infectious Disease Subjective - Review of Systems Service Date: 04/01/18 Subjective: There is no new change,blood pressure is better controlled. Infectious Disease Objective - Results Result Diagrams: 03/31/18 04:15 03/31/18 04:15 Recent Labs: Laboratory Last Values WBC 8.7 Th/cmm (4.8-10.8) 03/31/18 04:15 RBC 4.36 Mil/cmm (3.80-5.10) 03/31/18 04:15 Hgb 13.1 gm/dL (12-16) 03/31/18 04:15 Hct 40.5 % (41.0-60) L 03/31/18 04:15 MCV 92.8 fl (81-100) 03/31/18 04:15 MCH 30.1 pg (27.0-31.0) 03/31/18 04:15 MCHC Differential 32.4 pg (28.0-36.0) 03/31/18 04:15 RDW 14.3 % (11.5-20.0) 03/31/18 04:15 Plt Count 290 Th/cmm (150-400) 03/31/18 04:15 MPV 9.3 fl 03/31/18 04:15 Neutrophils % 68.6 % (40.0-80.0) 03/31/18 04:15 Lymphocytes % 23.0 % (20.0-50.0) 03/31/18 04:15 Monocytes % 5.7 % (2.0-10.0) 03/31/18 04:15 Eosinophils % 2.7 % (0.0-5.0) 03/31/18 04:15 Basophils % 0.0 % (0.0-2.0) 03/31/18 04:15 Sodium 140 mEq/L (136-145) 03/31/18 04:15 Potassium 4.4 mEq/L (3.5-5.1) 03/31/18 04:15 Chloride 103 mEq/L (98-107) 03/31/18 04:15 Carbon Dioxide 28.8 mEq/L (21.0-31.0) 03/31/18 04:15 Anion Gap 12.6 (7.0-16.0) 03/31/18 04:15 BUN 29 mg/dL (7-25) H 03/31/18 04:15 Creatinine 0.9 mg/dL (0.6-1.2) 03/31/18 04:15 Est GFR ( Amer) > 60.0 ml/min (>90) 03/31/18 04:15 Est GFR (Non-Af Amer) > 60.0 ml/min 03/31/18 04:15 BUN/Creatinine Ratio 32.2 03/31/18 04:15 Glucose 158 mg/dL (70-105) H 03/31/18 04:15 POC Glucose 118 MG/DL (70 - 105) H 04/01/18 11:13 Whole Bld Lactic Acid 1.02 mmol/L (0.60-1.99) 03/30/18 21:40 Calcium 9.5 mg/dL (8.6-10.3) 03/31/18 04:15 Total Bilirubin 0.3 mg/dL (0.3-1.0) 03/30/18 21:40 AST 8 U/L (13-39) L 03/30/18 21:40 ALT 6 U/L (7-52) L 03/30/18 21:40 Alkaline Phosphatase 81 U/L (34-104) 03/30/18 21:40 Troponin I 0.03 ng/mL (0.01-0.05) 03/31/18 04:15 Total Protein 6.1 gm/dL (6.0-8.3) 03/30/18 21:40 Albumin 3.2 gm/dL (3.7-5.3) L 03/30/18 21:40 Globulin 2.9 gm/dL 03/30/18 21:40 Albumin/Globulin Ratio 1.1 (1.0-1.8) 03/30/18 21:40 Triglycerides 198 mg/dL (<150) H 03/31/18 04:15 Cholesterol 162 mg/dL (<200) 03/31/18 04:15 LDL Cholesterol Direct 85 mg/dL (75-193) 03/31/18 04:15 HDL Cholesterol 40 mg/dL (23-92) 03/31/18 04:15 TSH 1.10 uIU/ml (0.34-5.60) 03/31/18 04:15 Urine Source CLEAN C 03/30/18 20:24 Urine Color YELLOW 03/30/18 20:24 Urine Clarity CLEAR (CLEAR) 03/30/18 20:24 Urine pH 6.5 (4.6 - 8.0) 03/30/18 20:24 Ur Specific [place] 1.020 (1.005-1.030) 03/30/18 20:24 Urine Protein >=300 mg/dL (NEGATIVE) 03/30/18 20:24 Urine Glucose (UA) NEGATIVE mg/dL (NEGATIVE) 03/30/18 20:24 Urine Ketones NEGATIVE mg/dL (NEGATIVE) 03/30/18 20:24 Urine Blood TRACE (NEGATIVE) 03/30/18 20:24 Urine Nitrate NEGATIVE (NEGATIVE) 03/30/18 20:24 Urine Bilirubin NEGATIVE (NEGATIVE) 03/30/18 20:24 Urine Urobilinogen 0.2 E.U./dL (0.2 - 1.0) 03/30/18 20:24 Ur Leukocyte Esterase NEGATIVE (NEGATIVE) 03/30/18 20:24 Urine RBC 2-5 /hpf (0-5) 03/30/18 20:24 Urine WBC 0-2 /hpf (0-5) 03/30/18 20:24 Ur Epithelial Cells FEW /lpf (FEW) 03/30/18 20:24 Urine Bacteria OCCASIONAL /hpf (NONE SEEN) 03/30/18 20:24 Urine Yeast FEW /hpf (NONE SEEN) H 03/30/18 20:24 - Physical Exam Vitals and I&O: Vital Signs Temp 97.1 F 04/01/18 11:53 Pulse 102 04/01/18 11:53 Resp 18 04/01/18 11:53 BP 147/74 04/01/18 11:53 Pulse Ox 98 04/01/18 11:53 Intake & Output 03/31/18 04/01/18 04/01/18 18:59 06:59 18:59 Intake Total 100 200 Output Total 1 Balance 100 199 Weight (lbs) 94.517 kg 95.799 kg Intake: Intake, IV Amount 100 200 Meropenem 1 gm In Sodium 100 200 Chloride 0.9% 100 ml @ 100 mls/hr IV Q8H [facility] Rx# :[id number] Output: Stool 1 Other: # Voids 4 3 # Bowel Movements 0 Stool Characteristics Formed Soft Brown Weight Source Bedscale Bedscale Active Medications: Current Medications Acetaminophen (Tylenol) 325 mg PO Q6HR PRN PRN Reason: Pain or Fever >101 Stop: 05/30/18 03:48 Acetaminophen/Hydrocodone Bitart ([place] 5mg/325mg) 1 tab PO Q6H PRN PRN Reason: Pain (Severe) Stop: 05/30/18 03:48 Carvedilol (Coreg) 6.25 mg PO BID [facility] Stop: 05/30/18 08:59 Last Admin: 04/01/18 08:19 Dose: 6.25 mg Dextrose (Glutose 40%) 15 gm PO DAILY PRN PRN Reason: LOW BLOOD SUGAR Stop: 05/30/18 03:48 Docusate Sodium (Colace) 100 mg PO BID [facility] Stop: 05/30/18 08:59 Last Admin: 04/01/18 08:19 Dose: 100 mg Enalaprilat (Vasotec) 1.25 mg IVP Q6HR PRN PRN Reason: SBP ABOVE 160 Stop: 05/30/18 05:59 Last Admin: 03/31/18 04:24 Dose: 1.25 mg Enoxaparin Sodium (Lovenox) 40 mg SUBQ DAILY [facility] Stop: 05/30/18 08:59 Last Admin: 04/01/18 08:20 Dose: 40 mg Gabapentin (Neurontin) 1,200 mg PO BID [facility] Stop: 05/30/18 08:59 Last Admin: 04/01/18 08:18 Dose: 1,200 mg Glipizide (Glucotrol) 10 mg PO BID [facility] Stop: 05/30/18 08:59 Last Admin: 04/01/18 08:19 Dose: 10 mg Meropenem 1 gm/ Sodium (Chloride) 100 mls @ 100 mls/hr IV Q8H [facility] Stop: 05/30/18 03:59 Last Admin: 04/01/18 12:15 Dose: 100 mls/hr Insulin Aspart (Novolog Insulin Sliding Scale) 0 units SUBQ Q6HR [facility]; Protocol Stop: 05/30/18 05:59 Last Admin: 04/01/18 12:08 Dose: Not Given Lorazepam (Ativan) 0.5 mg PO Q8HR PRN; Protocol PRN Reason: Anxiety Stop: 05/30/18 03:48 Last Admin: 04/01/18 03:46 Dose: 0.5 mg Losartan Potassium (Cozaar) 50 mg PO BID [facility] Stop: 05/30/18 16:59 Last Admin: 04/01/18 08:19 Dose: 50 mg Magnesium Hydroxide (Milk Of Magnesia) 30 ml PO HS PRN PRN Reason: Constipation Stop: 05/30/18 03:48 Metformin HCl (Glucophage) 500 mg PO BIDWM WILL Stop: 05/30/18 08:59 Last Admin: 04/01/18 08:18 Dose: 500 mg Miscellaneous (Pharmacy To Dose) 1 ea MC PRN [facility] Stop: 05/29/18 22:24 Miscellaneous (Arginine/Ascorbate Sod/Ruby Ac [Arginaid Powder]) 1 each PO DAILY [facility] Stop: 05/30/18 08:59 Miscellaneous (Potassium Chloride [Klor-Con 10]) 1 tab PO DAILY [facility] Stop: 05/30/18 08:59 Nicotine (Nicotine Transdermal System) 14 mg TD DAILY [facility] Stop: 05/31/18 08:59 Last Admin: 04/01/18 08:17 Dose: 14 mg Ondansetron HCl (Zofran Odt) 4 mg PO Q6HR PRN PRN Reason: Nausea / Vomiting Stop: 05/30/18 03:51 Temazepam (Restoril) 15 mg PO HS PRN; Protocol PRN Reason: Insomnia Stop: 05/30/18 03:51 Last Admin: 03/31/18 23:57 Dose: 15 mg General: no acute distress, well developed, well nourished HEENT: atraumatic, normocephalic, PERRLA, EOMI Neck: supple, no thyromegaly Cardiovascular: S1S2, regular Lungs: clear to auscultation bilaterally, clear to percussion Abdomen: soft, no tender, no distended Extremities: no cyanosis, no clubbing, no edema Neurological: awake, alert, oriented Skin: other (left foot wound.) Infectious Disease Assmt/Plan - Assessment Assessment: 1. Urgent hypertension, not controlled with an oral antihypertensive in the ER, even after giving labetalol 10 mg it is barely controlled. 2. Right foot wound, rule out osteomyelitis. 3. History of hypertension. 4. Diabetes mellitus type 2 5. Coronary artery disease. 6. Dyslipidemia. 7. Staph bacteremia. - Plan Plan: Continue meropenem, follow wound cultures. Follow the blood culture report. 3P bone scan. Add vancomycin IV and repeat blood cultures. Echo.
--- NOTE | 2018-04-01 15:08 | Diagnostic Imaging Report ---
Nuclear medicine 3 phase bone scan History: Right foot osteomyelitis Comparison: None Technique/procedure: 25.4 mCi millicuries of technetium 99 MDP was administered intravenously and flow, blood flow, and delayed images of the bilateral lower extremities were obtained. Findings: Flow images demonstrate increased uptake along the bilateral forefoot regions. Blood flow images demonstrate increased uptake along the bilateral forefoot regions. Delayed images demonstrate focal increased uptake seen along the right lateral forefoot. There is suboptimal assessment of the right foot on the delayed images. IMPRESSION: Suboptimal assessment of the right foot on the delayed images. Focal increased uptake is seen along the right lateral foot. This is indeterminate and may be due to degenerative etiology, however, osteomyelitis cannot be excluded. There may have also been partial amputation of the right distal phalanges. As no prior x-rays are available, an x-ray or MRI follow-up is recommended for further assessment of these findings.
--- NOTE | 2018-04-01 17:40 | Cardiology ---
03/31/[address] Ana Cain. M-MODE ECHOCARDIOGRAM: Mitral valve: Anterior leaflet of mitral valve shows normal excursion, EF velocity. Posterior leaflet of the mitral valve shows normal excursion. Left ventricular posterior wall shows increased thickness, normal excursion. Interventricular septum shows increased thickness, normal excursion, hypertrophy of the left ventricle, ejection fraction 50%. Left atrium enlarged 4.7 cm. Aortic root shows normal dimension, normal excursion of aortic leaflets. CONCLUSION: Left atrial enlargement. Hypertrophy of the left ventricle, ejection fraction 50%. 2D ECHO: Long axis view showed normal sized left ventricle with hypertrophy of the left ventricle. Left atrium enlarged. Aortic root shows normal dimension, normal excursion of aortic leaflets. Short axis view of mitral valve normal. Short axis view of aortic valve normal. Apical four chamber view showed normal sized left ventricle with hypertrophy of the left ventricle. Left atrium enlarged. Aortic root shows normal dimension, normal excursion of aortic leaflets. Short axis view of mitral valve normal. Short axis view of aortic valve normal. Apical four chamber view showed normal sized left ventricle with hypertrophy of the left ventricle. Left atrium enlarged. Right ventricular cavity normal. Right atrium normal. CONCLUSION: Hypertrophy of the left ventricle. Left atrial enlargement, ejection fraction 50%. Doppler study shows mild mitral regurgitation, severe tricuspid regurgitation, right ventricular systolic pressure 56 mmHg with moderate pulmonary hypertension. CONCLUSION: Hypertrophy of the left ventricle. Left atrial enlargement, [id number] tricuspid regurgitation. Mild mitral regurgitation, moderate pulmonary hypertension. [facility]# [id number]
[2018-04-02] MEDS: INSULIN ASPART SLIDING SCALE 100 UNITS/ML UNIT SUBQ SCH ×3 (00:20→11:54)
[2018-04-02] MEDS: Meropenem 1 GM in Sodium Chloride 0.9% 100 ML IV SCH ×2 (04:50→11:53)
--- NOTE | 2018-04-02 07:34 | General Progress Note ---
Subjective - Review of Systems Service Date: 04/02/18 Events since last encounter: bone scan not conclusive. no abscess for drainage, suggest IV antibiotics Objective - Results Result Diagrams: 03/31/18 04:15 03/31/18 04:15 Recent Labs: Laboratory Last Values WBC 8.7 Th/cmm (4.8-10.8) 03/31/18 04:15 RBC 4.36 Mil/cmm (3.80-5.10) 03/31/18 04:15 Hgb 13.1 gm/dL (12-16) 03/31/18 04:15 Hct 40.5 % (41.0-60) L 03/31/18 04:15 MCV 92.8 fl (81-100) 03/31/18 04:15 MCH 30.1 pg (27.0-31.0) 03/31/18 04:15 MCHC Differential 32.4 pg (28.0-36.0) 03/31/18 04:15 RDW 14.3 % (11.5-20.0) 03/31/18 04:15 Plt Count 290 Th/cmm (150-400) 03/31/18 04:15 MPV 9.3 fl 03/31/18 04:15 Neutrophils % 68.6 % (40.0-80.0) 03/31/18 04:15 Lymphocytes % 23.0 % (20.0-50.0) 03/31/18 04:15 Monocytes % 5.7 % (2.0-10.0) 03/31/18 04:15 Eosinophils % 2.7 % (0.0-5.0) 03/31/18 04:15 Basophils % 0.0 % (0.0-2.0) 03/31/18 04:15 Sodium 140 mEq/L (136-145) 03/31/18 04:15 Potassium 4.4 mEq/L (3.5-5.1) 03/31/18 04:15 Chloride 103 mEq/L (98-107) 03/31/18 04:15 Carbon Dioxide 28.8 mEq/L (21.0-31.0) 03/31/18 04:15 Anion Gap 12.6 (7.0-16.0) 03/31/18 04:15 BUN 29 mg/dL (7-25) H 03/31/18 04:15 Creatinine 0.9 mg/dL (0.6-1.2) 03/31/18 04:15 Est GFR ( Amer) > 60.0 ml/min (>90) 03/31/18 04:15 Est GFR (Non-Af Amer) > 60.0 ml/min 03/31/18 04:15 BUN/Creatinine Ratio 32.2 03/31/18 04:15 Glucose 158 mg/dL (70-105) H 03/31/18 04:15 POC Glucose 133 MG/DL (70 - 105) H 04/02/18 05:18 Whole Bld Lactic Acid 1.02 mmol/L (0.60-1.99) 03/30/18 21:40 Calcium 9.5 mg/dL (8.6-10.3) 03/31/18 04:15 Total Bilirubin 0.3 mg/dL (0.3-1.0) 03/30/18 21:40 AST 8 U/L (13-39) L 03/30/18 21:40 ALT 6 U/L (7-52) L 03/30/18 21:40 Alkaline Phosphatase 81 U/L (34-104) 03/30/18 21:40 Troponin I 0.03 ng/mL (0.01-0.05) 03/31/18 04:15 Total Protein 6.1 gm/dL (6.0-8.3) 03/30/18 21:40 Albumin 3.2 gm/dL (3.7-5.3) L 03/30/18 21:40 Globulin 2.9 gm/dL 03/30/18 21:40 Albumin/Globulin Ratio 1.1 (1.0-1.8) 03/30/18 21:40 Triglycerides 198 mg/dL (<150) H 03/31/18 04:15 Cholesterol 162 mg/dL (<200) 03/31/18 04:15 LDL Cholesterol Direct 85 mg/dL (75-193) 03/31/18 04:15 HDL Cholesterol 40 mg/dL (23-92) 03/31/18 04:15 TSH 1.10 uIU/ml (0.34-5.60) 03/31/18 04:15 Urine Source CLEAN C 03/30/18 20:24 Urine Color YELLOW 03/30/18 20:24 Urine Clarity CLEAR (CLEAR) 03/30/18 20:24 Urine pH 6.5 (4.6 - 8.0) 03/30/18 20:24 Ur Specific [place] 1.020 (1.005-1.030) 03/30/18 20:24 Urine Protein >=300 mg/dL (NEGATIVE) 03/30/18 20:24 Urine Glucose (UA) NEGATIVE mg/dL (NEGATIVE) 03/30/18 20:24 Urine Ketones NEGATIVE mg/dL (NEGATIVE) 03/30/18 20:24 Urine Blood TRACE (NEGATIVE) 03/30/18 20:24 Urine Nitrate NEGATIVE (NEGATIVE) 03/30/18 20:24 Urine Bilirubin NEGATIVE (NEGATIVE) 03/30/18 20:24 Urine Urobilinogen 0.2 E.U./dL (0.2 - 1.0) 03/30/18 20:24 Ur Leukocyte Esterase NEGATIVE (NEGATIVE) 03/30/18 20:24 Urine RBC 2-5 /hpf (0-5) 03/30/18 20:24 Urine WBC 0-2 /hpf (0-5) 03/30/18 20:24 Ur Epithelial Cells FEW /lpf (FEW) 03/30/18 20:24 Urine Bacteria OCCASIONAL /hpf (NONE SEEN) 03/30/18 20:24 Urine Yeast FEW /hpf (NONE SEEN) H 03/30/18 20:24 - Physical Exam Vitals and I&O: Vital Signs Temp 97.7 F 04/02/18 04:00 Pulse 65 04/02/18 04:00 Resp 20 04/02/18 04:00 BP 160/75 04/02/18 04:00 Pulse Ox 100 04/02/18 04:00 Intake & Output 04/01/18 04/02/18 04/02/18 18:59 06:59 18:59 Intake Total 750 560 Balance 750 560 Weight (lbs) 95.708 kg 95.708 kg Intake: Intake, IV Amount 100 200 Meropenem 1 gm In Sodium 100 200 Chloride 0.9% 100 ml @ 100 mls/hr IV Q8H [facility] Rx# :[id number] Oral 650 360 Other: # Voids 3 3 # Bowel Movements 1 1 Stool Characteristics Soft Weight Source Bedscale Bedscale Active Medications: Current Medications Acetaminophen (Tylenol) 325 mg PO Q6HR PRN PRN Reason: Pain or Fever >101 Stop: 05/30/18 03:48 Acetaminophen/Hydrocodone Bitart ([place] 5mg/325mg) 1 tab PO Q6H PRN PRN Reason: Pain (Severe) Stop: 05/30/18 03:48 Carvedilol (Coreg) 6.25 mg PO BID [facility] Stop: 05/30/18 08:59 Last Admin: 04/01/18 16:49 Dose: 6.25 mg Dextrose (Glutose 40%) 15 gm PO DAILY PRN PRN Reason: LOW BLOOD SUGAR Stop: 05/30/18 03:48 Docusate Sodium (Colace) 100 mg PO BID [facility] Stop: 05/30/18 08:59 Last Admin: 04/01/18 16:49 Dose: 100 mg Enalaprilat (Vasotec) 1.25 mg IVP Q6HR PRN PRN Reason: SBP ABOVE 160 Stop: 05/30/18 05:59 Last Admin: 03/31/18 04:24 Dose: 1.25 mg Enoxaparin Sodium (Lovenox) 40 mg SUBQ DAILY [facility] Stop: 05/30/18 08:59 Last Admin: 04/01/18 08:20 Dose: 40 mg Gabapentin (Neurontin) 1,200 mg PO BID [facility] Stop: 05/30/18 08:59 Last Admin: 04/01/18 16:49 Dose: 1,200 mg Glipizide (Glucotrol) 10 mg PO BID [facility] Stop: 05/30/18 08:59 Last Admin: 04/01/18 16:49 Dose: 10 mg Meropenem 1 gm/ Sodium (Chloride) 100 mls @ 100 mls/hr IV Q8H [facility] Stop: 05/30/18 03:59 Last Infusion: 04/02/18 05:50 Dose: Infused Vancomycin HCl 1.25 gm/ Sodium (Chloride) 250 mls @ 165 mls/hr IV Q24H [facility] Stop: 06/01/18 08:59 Insulin Aspart (Novolog Insulin Sliding Scale) 0 units SUBQ Q6HR [facility]; Protocol Stop: 05/30/18 05:59 Last Admin: 04/02/18 05:31 Dose: Not Given Lorazepam (Ativan) 0.5 mg PO Q8HR PRN; Protocol PRN Reason: Anxiety Stop: 05/30/18 03:48 Last Admin: 04/01/18 20:31 Dose: 0.5 mg Losartan Potassium (Cozaar) 50 mg PO BID [facility] Stop: 05/30/18 16:59 Last Admin: 04/01/18 16:49 Dose: 50 mg Magnesium Hydroxide (Milk Of Magnesia) 30 ml PO HS PRN PRN Reason: Constipation Stop: 05/30/18 03:48 Metformin HCl (Glucophage) 500 mg PO BIDWM WILL Stop: 05/30/18 08:59 Last Admin: 04/01/18 17:05 Dose: 500 mg Miscellaneous (Pharmacy To Dose) 1 [facility] PRN [facility] Stop: 05/29/18 22:24 Miscellaneous (Vancomycin Iv Per Pharmacy) 1 [facility] PRN [facility] Stop: 05/31/18 13:29 Nicotine (Nicotine Transdermal System) 14 mg TD DAILY [facility] Stop: 05/31/18 08:59 Last Admin: 04/01/18 08:17 Dose: 14 mg Ondansetron HCl (Zofran Odt) 4 mg PO Q6HR PRN PRN Reason: Nausea / Vomiting Stop: 05/30/18 03:51 Sildenafil Citrate (Revatio) 20 mg PO TID WILL Stop: 06/01/18 08:59 Temazepam (Restoril) 15 mg PO HS PRN; Protocol PRN Reason: Insomnia Stop: 05/30/18 03:51 Last Admin: 04/02/18 00:23 Dose: 15 mg
[2018-04-02] MEDS: Nicotine 14 mg/24 hr Tdm TD SCH (08:09)
[2018-04-02] MEDS: Multivitamin w/ Minerals Tab PO SCH (08:11)
[2018-04-02] MEDS: Enoxaparin 40 mg/0.4 mL 0.4mL Syr SUBQ SCH (08:13)
--- NOTE | 2018-04-02 09:44 | Infectious Disease Prog Note ---
Infectious Disease Subjective - Review of Systems Service Date: 04/02/18 Subjective: There is no new change,blood pressure is better controlled. Infectious Disease Objective - Results Result Diagrams: 03/31/18 04:15 03/31/18 04:15 Recent Labs: Laboratory Last Values WBC 8.7 Th/cmm (4.8-10.8) 03/31/18 04:15 RBC 4.36 Mil/cmm (3.80-5.10) 03/31/18 04:15 Hgb 13.1 gm/dL (12-16) 03/31/18 04:15 Hct 40.5 % (41.0-60) L 03/31/18 04:15 MCV 92.8 fl (81-100) 03/31/18 04:15 MCH 30.1 pg (27.0-31.0) 03/31/18 04:15 MCHC Differential 32.4 pg (28.0-36.0) 03/31/18 04:15 RDW 14.3 % (11.5-20.0) 03/31/18 04:15 Plt Count 290 Th/cmm (150-400) 03/31/18 04:15 MPV 9.3 fl 03/31/18 04:15 Neutrophils % 68.6 % (40.0-80.0) 03/31/18 04:15 Lymphocytes % 23.0 % (20.0-50.0) 03/31/18 04:15 Monocytes % 5.7 % (2.0-10.0) 03/31/18 04:15 Eosinophils % 2.7 % (0.0-5.0) 03/31/18 04:15 Basophils % 0.0 % (0.0-2.0) 03/31/18 04:15 Sodium 140 mEq/L (136-145) 03/31/18 04:15 Potassium 4.4 mEq/L (3.5-5.1) 03/31/18 04:15 Chloride 103 mEq/L (98-107) 03/31/18 04:15 Carbon Dioxide 28.8 mEq/L (21.0-31.0) 03/31/18 04:15 Anion Gap 12.6 (7.0-16.0) 03/31/18 04:15 BUN 29 mg/dL (7-25) H 03/31/18 04:15 Creatinine 0.9 mg/dL (0.6-1.2) 03/31/18 04:15 Est GFR ( Amer) > 60.0 ml/min (>90) 03/31/18 04:15 Est GFR (Non-Af Amer) > 60.0 ml/min 03/31/18 04:15 BUN/Creatinine Ratio 32.2 03/31/18 04:15 Glucose 158 mg/dL (70-105) H 03/31/18 04:15 POC Glucose 133 MG/DL (70 - 105) H 04/02/18 05:18 Whole Bld Lactic Acid 1.02 mmol/L (0.60-1.99) 03/30/18 21:40 Calcium 9.5 mg/dL (8.6-10.3) 03/31/18 04:15 Total Bilirubin 0.3 mg/dL (0.3-1.0) 03/30/18 21:40 AST 8 U/L (13-39) L 03/30/18 21:40 ALT 6 U/L (7-52) L 03/30/18 21:40 Alkaline Phosphatase 81 U/L (34-104) 03/30/18 21:40 Troponin I 0.03 ng/mL (0.01-0.05) 03/31/18 04:15 Total Protein 6.1 gm/dL (6.0-8.3) 03/30/18 21:40 Albumin 3.2 gm/dL (3.7-5.3) L 03/30/18 21:40 Globulin 2.9 gm/dL 03/30/18 21:40 Albumin/Globulin Ratio 1.1 (1.0-1.8) 03/30/18 21:40 Triglycerides 198 mg/dL (<150) H 03/31/18 04:15 Cholesterol 162 mg/dL (<200) 03/31/18 04:15 LDL Cholesterol Direct 85 mg/dL (75-193) 03/31/18 04:15 HDL Cholesterol 40 mg/dL (23-92) 03/31/18 04:15 TSH 1.10 uIU/ml (0.34-5.60) 03/31/18 04:15 Urine Source CLEAN C 03/30/18 20:24 Urine Color YELLOW 03/30/18 20:24 Urine Clarity CLEAR (CLEAR) 03/30/18 20:24 Urine pH 6.5 (4.6 - 8.0) 03/30/18 20:24 Ur Specific [place] 1.020 (1.005-1.030) 03/30/18 20:24 Urine Protein >=300 mg/dL (NEGATIVE) 03/30/18 20:24 Urine Glucose (UA) NEGATIVE mg/dL (NEGATIVE) 03/30/18 20:24 Urine Ketones NEGATIVE mg/dL (NEGATIVE) 03/30/18 20:24 Urine Blood TRACE (NEGATIVE) 03/30/18 20:24 Urine Nitrate NEGATIVE (NEGATIVE) 03/30/18 20:24 Urine Bilirubin NEGATIVE (NEGATIVE) 03/30/18 20:24 Urine Urobilinogen 0.2 E.U./dL (0.2 - 1.0) 03/30/18 20:24 Ur Leukocyte Esterase NEGATIVE (NEGATIVE) 03/30/18 20:24 Urine RBC 2-5 /hpf (0-5) 03/30/18 20:24 Urine WBC 0-2 /hpf (0-5) 03/30/18 20:24 Ur Epithelial Cells FEW /lpf (FEW) 03/30/18 20:24 Urine Bacteria OCCASIONAL /hpf (NONE SEEN) 03/30/18 20:24 Urine Yeast FEW /hpf (NONE SEEN) H 03/30/18 20:24 - Physical Exam Vitals and I&O: Vital Signs Temp 97.5 F 04/02/18 07:36 Pulse 68 04/02/18 08:10 Resp 18 04/02/18 07:36 BP 138/86 04/02/18 08:10 Pulse Ox 96 04/02/18 07:36 Intake & Output 04/01/18 04/02/18 04/02/18 18:59 06:59 18:59 Intake Total 750 560 Balance 750 560 Weight (lbs) 95.708 kg 95.708 kg Intake: Intake, IV Amount 100 200 Meropenem 1 gm In Sodium 100 200 Chloride 0.9% 100 ml @ 100 mls/hr IV Q8H [facility] Rx# :[id number] Oral 650 360 Other: # Voids 3 3 # Bowel Movements 1 1 Stool Characteristics Soft Weight Source Bedscale Bedscale Active Medications: Current Medications Acetaminophen (Tylenol) 325 mg PO Q6HR PRN PRN Reason: Pain or Fever >101 Stop: 05/30/18 03:48 Acetaminophen/Hydrocodone Bitart ([place] 5mg/325mg) 1 tab PO Q6H PRN PRN Reason: Pain (Severe) Stop: 05/30/18 03:48 Carvedilol (Coreg) 6.25 mg PO BID [facility] Stop: 05/30/18 08:59 Last Admin: 04/02/18 08:10 Dose: 6.25 mg Dextrose (Glutose 40%) 15 gm PO DAILY PRN PRN Reason: LOW BLOOD SUGAR Stop: 05/30/18 03:48 Docusate Sodium (Colace) 100 mg PO BID [facility] Stop: 05/30/18 08:59 Last Admin: 04/02/18 08:10 Dose: 100 mg Enalaprilat (Vasotec) 1.25 mg IVP Q6HR PRN PRN Reason: SBP ABOVE 160 Stop: 05/30/18 05:59 Last Admin: 03/31/18 04:24 Dose: 1.25 mg Enoxaparin Sodium (Lovenox) 40 mg SUBQ DAILY [facility] Stop: 05/30/18 08:59 Last Admin: 04/02/18 08:13 Dose: 40 mg Escitalopram Oxalate (Lexapro) 5 mg PO DAILY [facility]; Protocol Stop: 06/02/18 08:59 Gabapentin (Neurontin) 1,200 mg PO BID [facility] Stop: 05/30/18 08:59 Last Admin: 04/02/18 08:10 Dose: 1,200 mg Glipizide (Glucotrol) 10 mg PO BID [facility] Stop: 05/30/18 08:59 Last Admin: 04/02/18 08:10 Dose: 10 mg Meropenem 1 gm/ Sodium (Chloride) 100 mls @ 100 mls/hr IV Q8H [facility] Stop: 05/30/18 03:59 Last Infusion: 04/02/18 05:50 Dose: Infused Vancomycin HCl 1.25 gm/ Sodium (Chloride) 250 mls @ 165 mls/hr IV Q24H [facility] Stop: 06/01/18 08:59 Last Admin: 04/02/18 08:22 Dose: 165 mls/hr Insulin Aspart (Novolog Insulin Sliding Scale) 0 units SUBQ Q6HR [facility]; Protocol Stop: 05/30/18 05:59 Last Admin: 04/02/18 05:31 Dose: Not Given Lorazepam (Ativan) 0.5 mg PO Q8HR PRN; Protocol PRN Reason: Anxiety Stop: 05/30/18 03:48 Last Admin: 04/01/18 20:31 Dose: 0.5 mg Losartan Potassium (Cozaar) 50 mg PO BID WILL Stop: 05/30/18 16:59 Last Admin: 04/02/18 08:10 Dose: 50 mg Magnesium Hydroxide (Milk Of Magnesia) 30 ml PO HS PRN PRN Reason: Constipation Stop: 05/30/18 03:48 Metformin HCl (Glucophage) 500 mg PO BIDWM WILL Stop: 05/30/18 08:59 Last Admin: 04/02/18 08:10 Dose: 500 mg Miscellaneous (Pharmacy To Dose) 1 ea [facility] PRN WILL Stop: 05/29/18 22:24 Miscellaneous (Vancomycin Iv Per Pharmacy) 1 [facility] PRN [facility] Stop: 05/31/18 13:29 Nicotine (Nicotine Transdermal System) 14 mg TD DAILY WILL Stop: 05/31/18 08:59 Last Admin: 04/02/18 08:09 Dose: 14 mg Ondansetron HCl (Zofran Odt) 4 mg PO Q6HR PRN PRN Reason: Nausea / Vomiting Stop: 05/30/18 03:51 Sildenafil Citrate (Revatio) 20 mg PO TID [facility] Stop: 06/01/18 08:59 Last Admin: 04/02/18 08:10 Dose: 20 mg Temazepam (Restoril) 15 mg PO HS PRN; Protocol PRN Reason: Insomnia Stop: 05/30/18 03:51 Last Admin: 04/02/18 00:23 Dose: 15 mg General: no acute distress, well developed, well nourished HEENT: atraumatic, normocephalic, PERRLA Neck: supple, no thyromegaly Cardiovascular: S1S2, regular Lungs: clear to auscultation bilaterally, clear to percussion Abdomen: soft, no tender, no distended Extremities: other (right foot ulcer.), no cyanosis, no clubbing, no edema Infectious Disease Assmt/Plan - Assessment Assessment: 1. Hypertension, controlled now. 2. Right foot wound, rule out osteomyelitis. 3. History of hypertension. 4. Diabetes mellitus type 2 5. Coronary artery disease. 6. Dyslipidemia. 7. Staph bacteremia.? r/o line infection. waiting for the Identification to reach final decision. - Plan Plan: Continue meropenem, follow wound cultures. Follow the blood culture report. Contiue vancomycin IV and repeat blood cultures. Echo.
[2018-04-02] MEDS ORDERED: Ertapenem 1 GM in Sodium Chloride 0.9% 100 ML IV SCH (11:00)
--- NOTE | 2018-04-02 20:18 | Consultation ---
DATE OF CONSULTATION: 04/02/2018 IDENTIFYING INFORMATION: The patient is 62-year-old female. REASON FOR CONSULTATION: I was asked to see this patient, what seemed like she was talking to somebody who was not there. HISTORY OF PRESENT ILLNESS: The patient was admitted because of hypertension, diabetes mellitus. She has a history of cancer. She has high lipids. The patient herself reports that she sometimes hear voices when she is about to get out of sleep, but then she does not hear it anymore. She reported that she recently has been upset with her who apparently asked his kids to leave. The patient was alert, oriented to place, person, time, and situation. The patient reports no substance abuse. She denies any intent to harm herself or anybody. Denies any visual hallucinations. Now, she states when she goes to sleep, she feels like she is talking to herself. She has not been sleeping; however, in the past few days. Appetite is decreased. She currently weighs 200 pounds. PAST PSYCHIATRIC HISTORY: The patient reported no prior psych treatment, never tried to harm herself. She has a history of depression, never treated. No auditory and visual hallucinations. No mood swings. MEDICAL HISTORY: The patient has abscess in her foot. She has hypertension, diabetes mellitus, coronary artery disease, increased lipids. ALLERGIES: No known drug allergy. FAMILY AND SOCIAL HISTORY: The patient from her for 5 years. They were for 40 years. She has 3 children. Apparently recently, the asked her children to move out. She is not working. She did work in dry cleaning. No alcohol. She used drugs in the past, but not recently. Used meth and THC. She was never in treatment. MENTAL STATUS EXAMINATION: The patient is appropriately dressed, appropriately groomed. Mood is depressed. Affect is sad. Thoughts are clear. Speech is coherent. She was alert. She was able to tell me the date, where she is, why she is here. She reports she has been unable to sleep well for the past few days with decreased appetite. She currently weighs 200 pounds. She denies any current intent to harm herself or anyone. Denies any visual hallucination or paranoia. Long-term memory was good for age, date of . Recent memory is good for events after coming here, what she ate for breakfast. Immediate memory is good, ____ 3 out of 3 in 5 minutes. Insight about illness is fair. Judgment is fair. IMPRESSION: AXIS I: Major depression, recurrent with possible psychosis. MEDICAL DIAGNOSIS: Per medical doctor. PLAN: To add Lexapro. The patient reported the voices only happen when she is about to go to bed, which is sometimes a common and normal phenomena; however, she started hearing voices when she is waking up from sleep, then she may need to be on antipsychotic. [facility] if she is acting agitated and need follow up with the psychiatrist upon discharge. Thank you very much for allowing me to participate in the care of this most interesting lady. JOB# [id number]
[2018-04-03] MEDS ORDERED: Escitalopram Oxalate 5 mg Tab PO SCH (09:00)
--- NOTE | 2018-04-14 13:28 | Discharge Summary ---
DATE OF DISCHARGE: 04/02/2018 CHIEF COMPLAINT: Uncontrolled hypertension. HISTORY OF PRESENT ILLNESS: The patient is a 62-year-old female with a past medical history of hypertension, diabetes mellitus type 2, coronary artery disease, dyslipidemia, had developed uncontrolled hypertension. Her systolic blood pressure was 180s at nursing facility. The patient also complained of headache. So, she was sent to [facility] for further evaluation and management. On initial evaluation, her vital showed blood pressure 180/85, some oral antihypertensives were given. Her blood culture could not be controlled, so she was admitted to the ICU for further care. We started the patient on labetalol and patient said this patient was receiving antibiotics for right foot ulcer, possible deep infection and osteomyelitis. A 3-phase bone scan was performed and it is suspected osteomyelitis. MRI from outside facility showed a diagnosis of osteomyelitis. The patient was receiving Invanz from [facility]. Prior to going to [facility] she was admitted to [facility], where she was diagnosed to have osteomyelitis and Invanz was given for 6 weeks. Multiple consultants were called it included Dr. Erma Underwood for hypertension. Dr. Elias for wound and osteomyelitis of the leg. The patient's blood pressure control within a few days and ultimately as the patient's blood culture grew gram negative cocci, so the patient was discharged on 04/02/2018. The patient was discharged to [facility]. The patient continue antibiotic Invanz over there to complete 6 weeks of therapy. DISCHARGE CONDITION: Stable. DISCHARGE DIAGNOSES: 1. Urgent hypertension, not controlled with oral antibiotic hypertensive therapy in the ER. 2. Right foot wound, osteomyelitis. 3. History of hypertension. 4. Diabetes mellitus type 2. 5. Chronic artery disease. 6. Dyslipidemia. DISCHARGE DISPOSITION: To [facility]. DISCHARGE CONDITION: Stable. DISCHARGE MEDICATIONS: Per medication reconciliation sheet. CONSULTANTS: Called Dr. Milagros Underwood and Cardiology consultation, General Surgery consultation with Dr Elias. JOB# [id number]
== END 2018-04-02 17:45 | DRG 199 ==
LOC: ER 19:07 → ICU 21:50 → MSI 03-31 12:09
PROVIDERS: ADMIT Internal Medicine Infectious Disease; ATTEND Internal Medicine Infectious Disease
DX: I16.0 Hypertensive urgency (principal); R78.81 Bacteremia; S91.301A Unspecified open wound, right foot, initial encounter; F33.9 Major depressive disorder, recurrent, unspecified; E11.9 Type 2 diabetes mellitus without complications; I25.10 Atherosclerotic heart disease of native coronary artery without angina pectoris; E78.5 Hyperlipidemia, unspecified; I25.2 Old myocardial infarction; I10 Essential (primary) hypertension; Z79.4 Long term (current) use of insulin; Z85.828 Personal history of other malignant neoplasm of skin; Z89.421 Acquired absence of other right toe(s)
CPT/HCPCS: 36415-UA; 71045-TC; 78315-TC; 80048-TC; 80053-TC; 80061-TC; 81001-TC; 82948-90; 83036-90; 83605; 84443-TC; 84484-TC; 85025-TC; 87070-90; 90799; 93005; 93925-TC; 93970-TC-50; 94760; A9503; J1335; J1650; J1815; J2185; J3370; Z7610